=== PATIENT | female | born 1975 | race African-American/Black ===

== ENCOUNTER 2021-08-28 19:52 | Emergency (ER) | payer MEDICARE, MEDICAID ==
[~2021-08-28] VITALS: Ht 160 cm; Wt 80.0 kg
[~2021-08-28 19:52] MED LIST: ALBU6.7H9; ALBU90AE2 INH; ASCO500C15 PO; ATOR-2 PO; BACL-141 PO; BUSP7.5T7 PO; DIME240C2 PO; FERR325T6 MT; FURO80TA87 PO; GABA-290 PO; LURA80TA2 MT; METO200T48 PO; METO50TA95; MORP30CP13 PO; OXYBUTYNIN; RANO500T6 PO; SENN-257 PO; SPIR25TA6 PO; WARF2.5T47; WARF4TAB71 PO
[2021-08-28 21:14] LABS: CLARITY URINE CLEAR (CLEAR); COLOR URINE YELLOW (YELLOW); KETONES URINE NEGATIVE (NEGATIVE); LEUKOCYTE ESTERASE URINE NEGATIVE (NEGATIVE); NITRITE URINE NEGATIVE (NEGATIVE); OCCULT BLOOD URINE NEGATIVE (NEGATIVE); PH URINE 6.5 (4.5-8.0); PROTEIN URINE NEGATIVE (NEGATIVE); SPECIFIC GRAVITY URINE 1.008 (1.005-1.030); UROBILINOGEN URINE 0.2 E.U./dL (0.2-1.0)
[2021-08-28 21:30] LABS: *AMPHETAMINES SCREEN URINE NEGATIVE (NEGATIVE); *BARBITURATES SCREEN URINE NEGATIVE (NEGATIVE); *BENZODIAZEPINES SCREEN URINE NEGATIVE (NEGATIVE); *COCAINE SCREEN URINE NEGATIVE (NEGATIVE); CANNABINOID URINE SCREEN NEGATIVE (NEGATIVE); METHADONE URINE SCREEN NEGATIVE (NEGATIVE); PHENCYCLIDINE URINE SCREEN NEGATIVE (NEGATIVE)
[2021-08-28 21:32] LABS: OPIATES URINE SCREEN PRESUMTIVE POSITIVE (NEGATIVE)
[2021-08-28 21:55] VITALS: BP 94/49
[2021-08-28 22:01] LABS: BASOPHILS % 0.4 % (0.0-2.0); EOSINOPHILS % 0.2 % (0.0-5.0); HEMATOCRIT. 37.1 % (36.0-48.0); HEMOGLOBIN. 12.7 g/dL (12.0-16.0); MEAN CORPUSCULAR HEMOGLOBIN 31.8 pg (28.0-32.0); MEAN CORPUSCULAR VOLUME 93.2 fL (81.0-99.0); MEAN PLATELET VOLUME 8.9 fl (7.4-10.4); MONOCYTES % 6.4 % (2.0-8.0); PLATELET 221 x1000/uL (130-400); RED BLOOD CELL COUNT 3.99 mill/uL (4.2-5.4); RED CELL DISTRIBUTION WIDTH 15.1 % (11.6-14.6)
[2021-08-28] MEDS: SODIUM CHLORIDE 0.9% 1,000 ML IV ONE (22:03)
[2021-08-28 22:09] LABS: CHLORIDE 92 mEq/L (98-107)
[2021-08-28 22:19] LABS: ETHANOL BLOOD < 10 mg/dL; VALPROIC ACID <3.0 ug/mL ug/mL (50-100)
[2021-08-28 22:22] LABS: CARBAMAZEPINE < 0.5 ug/mL (4-12)
[2021-08-28] MEDS: POTASSIUM CHLORIDE 20MEQ TABLET SR PO NR (23:01)
== END 2021-08-29 01:05 | disposition home or self-care (01) ==
LOC: ER 19:52
DX: R56.9 Unspecified convulsions (principal); I50.9 Heart failure, unspecified; Z13.9 Encounter for screening, unspecified; Z88.1 Allergy status to other antibiotic agents; Z79.899 Other long term (current) drug therapy; Z86.59 Personal history of other mental and behavioral disorders
CPT/HCPCS: 36415; 80053; 80156; 80165; 80185; 80305; 80320; 81003; 85025; 96360; 99283; J7030; G0480